=== PATIENT | female | born 1950 | race Two or more races ===

== ENCOUNTER 2024-05-14 12:19 | Emergency (ER) | payer OTHER ==
[~2024-05-14] VITALS: Ht 162.6 cm; Wt 46.7 kg
[2024-05-14] MEDS ORDERED: VITAMIN D21250 MCG PO (13:27)
[2024-05-14] MEDS ORDERED: CREON DR 12,001 EACH PO (13:27)
== END 2024-05-14 14:34 | disposition home or self-care (01) ==
LOC: ER 12:21
DX: T17.590A Other foreign object in bronchus causing asphyxiation, initial encounter (principal); W44.F9XA Other object of natural or organic material, entering into or through a natural orifice, initial encounter; Y93.9 Activity, unspecified; Y92.89 Other specified places as the place of occurrence of the external cause; Y99.9 Unspecified external cause status; Z88.8 Allergy status to other drugs, medicaments and biological substances